=== PATIENT | female | born 1960 | race Hispanic/Latino ===

== ENCOUNTER 2017-07-28 09:39 | Day surgery (SDC) | payer MEDICARE ==
[~2017-07-28 09:39] MED LIST: BALANCED SALT IRRIG PLAIN 500 ML BTL IRR ONE; DUOVISC 1 KIT OPTH ONE; EPINEPHRINE/PF 1 MG/ML AMP ONE; MOXIFLOXACIN HCL 10 DROPS/ML **OR USE OPTH ONE; NS 0.9% VIAL 10 ML ONE; TRYPAN BLUE 0.5 ML SYR OPTH ONE
--- OUTSIDE RECORDS SUMMARY | 2017-07-28 09:41 | XMS REPORT ---
:1960 [facility] Address [address] [place] [address] [address]. [address] [place] [address] Care Team Providers Name Role Phone DR ABIMAEL HOLLINGSWORTH Unavailable Unavailable DR Ernestina CRYSTAL Unavailable Unavailable Problems This patient has no known problems. Allergies, Adverse Reactions, Alerts This patient has no known allergies or adverse reactions. Medications This patient has no known medications. Encounters Start End Encounter Admission Attending Care Care Encounter Date/Time Date/Time Type Type Clinicians Facility Department ID 2017-07-14 2017-07-14 Outpatient [facility] [id number] 11:52:00 23:59:00 ABIMAEL 2014-06-28 2014-08-05 Outpatient [facility] [id number] 09:13:00 23:59:00 FABY Results Test Description Test Time Test Comments Text Results Atomic Results Result Comments WID-U/S VENOUS DOPPLER 2017-07-14 13:07:21 Exam: Right lower extremity venous RT LOW EXT Doppler.Location: [id number]: [id number]: Deep venous thrombosis of lower extremity (disorder)Technique: Grayscale, color flow and spectral analysis of the common femoral,profunda femoris, femoral, popliteal, saphenous and calf veins of the rightlower extremity was performed.Findings:There is normal flow, phasicity, compressibility and augmentation of the deepvenous system of the right lower extremity. No DVT is found in right leg.Impression:Negative for DVT.
[2017-07-28] MEDS: PHENYLEPHRINE 10% OPTH 5ML ONE ×3 (10:30→10:40)
[2017-07-28] MEDS: CYCLOPENTOLATE 1% OPTH 2 ML ONE ×3 (10:30→10:40)
[2017-07-28] MEDS ORDERED: LIDOCAINE 2% MPF 5 ML VIAL ONE ×3 (10:43→11:54)
[2017-07-28] MEDS ORDERED: NA CHLORIDE 0.9% 500 ML ONE (10:44)
[2017-07-28] MEDS ORDERED: BUPIVACAINE 0.25% PF 10 ML VIAL ONE (10:44)
[2017-07-28] MEDS ORDERED: TETRACAINE HCL 0.5% 2ML OPTH ONE (10:44)
[2017-07-28] MEDS ORDERED: PROPOFOL 200 MG/20 ML VIAL IV ONE ×2 (11:45→11:54)
--- NOTE | 2017-07-28 12:18 | P.BOP ---
Preoperative diagnosis: Nuclear sclerotic, cortical and posterior subcapsular cataract OS Postoperative diagnosis: Same Primary procedure: Phacoemulsification with IOL OS Estimated blood loss: None Anesthesia: Local (Subtenon's infusion with anesthesia for cataract surgery) Complications: None Implants: ZCB00 +23.5 Transferred to: Other (Day surgery) Condition: Good
--- NOTE | 2017-07-28 21:25 | OP ---
Date of Procedure: 07/28/2017 Surgeon: Jeanine Seymour MD Anesthesiologist: 1. Salud Nickerson CRNA. 2. Thomas Meadows CRNA. 3. Von Claros M.D. Preoperative Diagnoses: Nuclear sclerotic, cortical, and posterior subcapsular cataract, OS (left ey e). Operation Performed: Phacoemulsification with intraocular lens implant, OS (left eye). Anesthesia: Per cataract surgery. Complications: None. Description Of Procedure: In day surgery, the patient was prepped with Betadine and draped. A conju nctival incision was made in the inferior nasal quadrant with Grace scissors. A sub-Tenon block c onsisting of a 1:1 mixture of 2% Xylocaine and 0.25% bupivacaine was placed through the conjunctival incision with a blunt cannula. A Honan balloon was placed over the eye and the patient was transferr ed to the operating room. In the operating room the patient was prepped and draped in the usual sterile fashion for ophthalmic surgery. A lid speculum was placed in the OS. Two paracentesis sites were made superiorly and infer iorly in the limbal cornea. Viscoat was placed in the anterior chamber and a crescent blade was used to make a corneal groove and tunnel, and a keratome was used to enter the anterior chamber. Provisc was placed in the anterior chamber and a 360 degree capsulotomy was performed with a cystitome. The lens was hydrodissected with BSS and rotated freely. The lens was removed with a stop and chop tech nique. A 4.50 phaco CDE was used to remove the lens. Residual cortex was removed with the irrigatio n and aspiration. Provisc was placed in the capsular bag. A ZCB00 +23.5 diopter lens was placed in the capsular bag without complications. Irrigation and aspiration was used to remove residual viscoe lastic. The paracentesis sites were hydrated with BSS. The wound and paracentesis sites were inspec kory and found to be watertight. Vigamox 0.07 cc was placed intracamerally at the end of the procedur e. The eye was irrigated with balanced salt solution. The eye was patched with a soft cotton patch and Loredo metal shield. The patient was returned to day surgery in good condition. Discharge Instructions: Ms. Friedman is discharged to home in good condition and is to follow up with Dr. Seymour in the morning. MARTIN/SANJIV Voice ID: [id number] Report ID: [id number]
== END 2017-07-28 13:00 | disposition home or self-care (01) ==
LOC: OR 09:39
PROVIDERS: ATTEND Ophthalmology Retina Specialist
PROC: 08RK3JZ Replacement of Left Lens with Synthetic Substitute, Percutaneous Approach (ICD-10-PCS; principal; 2017-07-28 10:55)
DX: H25.12 Age-related nuclear cataract, left eye (principal); H25.042 Posterior subcapsular polar age-related cataract, left eye; H25.012 Cortical age-related cataract, left eye; H35.00 Unspecified background retinopathy; I10 Essential (primary) hypertension; E03.9 Hypothyroidism, unspecified; E78.5 Hyperlipidemia, unspecified; Z79.82 Long term (current) use of aspirin; Z90.49 Acquired absence of other specified parts of digestive tract; Z89.519 Acquired absence of unspecified leg below knee; Z83.518 Family history of other specified eye disorder; Z83.3 Family history of diabetes mellitus
CPT/HCPCS: 66984; 82962; J0171

== ENCOUNTER 2017-09-08 08:49 | Day surgery (SDC) | payer MEDICARE ==
--- OUTSIDE RECORDS SUMMARY | 2017-09-08 08:53 | XMS REPORT ---
:1960 [facility] Organization [facility] Address [address] [place] [address] Care Team Providers Name Role Phone MS ORION CIFUENTES Unavailable Unavailable EDEL, DR VARGHESE Unavailable Unavailable MARAH, DR FABY Do Unavailable Unavailable Problems This patient has no known problems. Allergies, Adverse Reactions, Alerts This patient has no known allergies or adverse reactions. Medications This patient has no known medications. Encounters Start End Encounter Admission Attending Care Care Encounter Date/Time Date/Time Type Type Clinicians Facility Department ID 2017-08-15 2017-08-15 Emergency E [facility] [id number] 12:03:00 14:14:00 ORION 2017-07-14 2017-07-14 Outpatient [facility] HOLLINGSWORTH [facility] [id number] 11:52:00 23:59:00 ABIMAEL 2014-06-28 2014-08-05 Outpatient [facility] [id number] 09:13:00 23:59:00 FABY Results Test Description Test Time Test Comments Text Results Atomic Results Result Comments U/S VENOUS DOPPLER 2017-08-15 13:21:06 Left lower extremity venous LOWER EXT DopplerLocation code: [id number] HISTORY: Pain in lower limb, prior [id number] amputationTechnique: Grayscale, color, and Doppler spectral waveform analysis of the deepveins of the right lower extremity was performed. FINDINGS: Normal color flow and compressibility is present within the rightcommon femoral, superficial femoral, and popliteal veins.IMPRESSION:Negative for left lower extremity DVT. XR KNEE LEFT 3 VIEWS 2017-08-15 12:31:51 Left knee, 3 viewsLocation Code: [id number] HISTORY: M79.662: PAIN IN LEFT LOWER LEGCOMMENTS: AP, lateral, and oblique views of the left knee were obtained. 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 There is no acute fracture ormalalignment. There is diffuse osteopenia. There are diffuse vascularcalcifications. The soft tissues are otherwise unremarkable.IMPRESSION: No acute radiographic abnormality. WID-U/S VENOUS DOPPLER 2017-07-14 13:07:21 Exam: Right lower extremity venous RT LOW EXT Doppler.Location: H2Vwgcicg: [id number]: Deep venous thrombosis of lower extremity (disorder)Technique: Grayscale, color flow and spectral analysis of the common femoral,profunda femoris, femoral, popliteal, saphenous and calf veins of the rightlower extremity was performed.Findings:There is normal flow, phasicity, compressibility and augmentation of the deepvenous system of the right lower extremity. No DVT is found in right leg.Impression:Negative for DVT.
[2017-09-08] MEDS ORDERED: EPINEPHRINE/PF 1 MG/ML AMP ONE (09:17)
[2017-09-08] MEDS ORDERED: NS 0.9% VIAL 10 ML ONE (09:17)
[2017-09-08] MEDS ORDERED: DUOVISC 1 KIT OPTH ONE (09:18)
[2017-09-08] MEDS ORDERED: MOXIFLOXACIN HCL 10 DROPS/ML **OR USE OPTH ONE (09:18)
[2017-09-08] MEDS ORDERED: BALANCED SALT IRRIG PLAIN 500 ML BTL IRR ONE (09:18)
[2017-09-08] MEDS ORDERED: LIDOCAINE 2% MPF 5 ML VIAL ONE (09:28)
[2017-09-08] MEDS ORDERED: TETRACAINE HCL 0.5% 2ML OPTH ONE (09:29)
[2017-09-08] MEDS ORDERED: BUPIVACAINE 0.25% PF 10 ML VIAL ONE (09:29)
[2017-09-08] MEDS ORDERED: NA CHLORIDE 0.9% 500 ML ONE (09:30)
[2017-09-08] MEDS: PHENYLEPHRINE 10% OPTH 5ML ONE ×3 (09:50→10:00)
[2017-09-08] MEDS: CYCLOPENTOLATE 1% OPTH 2 ML ONE ×2 (09:50→10:00)
[2017-09-08] MEDS ORDERED: INSULIN -REGULAR HUMAN 50 UNIT/0.5 ML ML ONE (10:13)
[2017-09-08] MEDS ORDERED: PROPOFOL 200 MG/20 ML VIAL IV ONE (10:36)
[2017-09-08] MEDS ORDERED: LIDOCAINE 1% MPF 2 ML AMPULE ONE (10:37)
--- NOTE | 2017-09-08 11:47 | P.BOP ---
Preoperative diagnosis: Cortical and posterior subcapsular cataract OD Postoperative diagnosis: Same Primary procedure: Phacoemulsification with IOL OD Estimated blood loss: None Anesthesia: Local (Subtenon's infusion with anesthesia for cataract surgery) Complications: None Implants: ZCB00 +24.0 Transferred to: Other (Day surgery) Condition: Good
--- NOTE | 2017-09-08 21:29 | OP ---
Date of Procedure: 09/08/2017 Surgeon: Jeanine Seymour MD Anesthesiologist: Michelle Vides CRNA, Brock Matson CRNA, and Von Claros M.D. Preoperative Diagnosis: Cortical cataract and posterior subcapsular cataract, OD (right eye). Operation Performed: Phacoemulsification with intraocular lens implant, OD (right eye). Anesthesia: Per cataract surgery. Complications: None. Description Of Procedure: In day surgery, the patient was prepped with Betadine and draped. A conju nctival incision was made in the inferior nasal quadrant with Grace scissors. A sub-Tenon block c onsisting of a 1:1 mixture of 2% Xylocaine and 0.25% bupivacaine was placed through the conjunctival incision with a blunt cannula. A Honan balloon was placed over the eye and the patient was transferr ed to the operating room. In the operating room the patient was prepped and draped in the usual sterile fashion for ophthalmic surgery. A lid speculum was placed in the right eye. Two paracentesis sites were made superiorly an d inferiorly in the limbal cornea. Viscoat was placed in the anterior chamber and a crescent blade w as used to make a corneal groove and tunnel, and a keratome was used to enter the anterior chamber. Provisc was placed in the anterior chamber and a 360 degree capsulotomy was performed with a cystitom e. The lens was hydrodissected with BSS and rotated freely. The lens was removed with a stop and ch op technique. A 3.72 phaco CDE was used to remove the lens. Residual cortex was removed with the ir rigation and aspiration. Provisc was placed in the capsular bag. A ZCB00 +24.0 diopter lens was kori ariane in the capsular bag without complications. Irrigation and aspiration was used to remove residual viscoelastic. The paracentesis sites were hydrated with BSS. The wound and paracentesis sites were inspected and found to be watertight. Vigamox 0.07 cc was placed intracamerally at the end of the p rocedure. The eye was irrigated with balanced salt solution. The eye was patched with a soft cotton patch and Loredo metal shield. The patient was returned to day surgery in good condition. Comments: A 1:5000 epinephrine was placed in the anterior chamber prior to Viscoat. Discharge Instructions: Ms. Friedman is discharged to home in good condition. She is to follow up jorge luis Seymour today at 4 to check her intraocular pressure and then in the morning. MARTIN/SANJIV Voice ID: [id number] Report ID: [id number]
== END 2017-09-08 12:25 | disposition home or self-care (01) ==
LOC: OR 08:49
PROVIDERS: ATTEND Ophthalmology Retina Specialist
PROC: 08RJ3JZ Replacement of Right Lens with Synthetic Substitute, Percutaneous Approach (ICD-10-PCS; principal; 2017-09-08 10:15)
DX: H25.011 Cortical age-related cataract, right eye (principal); H25.041 Posterior subcapsular polar age-related cataract, right eye; H40.20X0 Unspecified primary angle-closure glaucoma, stage unspecified; E11.319 Type 2 diabetes mellitus with unspecified diabetic retinopathy without macular edema; I10 Essential (primary) hypertension; E03.9 Hypothyroidism, unspecified; E78.5 Hyperlipidemia, unspecified; Z79.82 Long term (current) use of aspirin; Z89.519 Acquired absence of unspecified leg below knee; Z83.518 Family history of other specified eye disorder; Z83.3 Family history of diabetes mellitus
CPT/HCPCS: 66984; 82962 ×3; J0171; J2001